=== PATIENT | female | born 1980 | race Caucasian/White ===

== ENCOUNTER → 2016-06-22 | Outpatient (CLI) | payer BC, OTHER | LOC: RAD 20:13 | DX: M54.5 Low back pain (principal) | CPT/HCPCS: 72110 ==

== ENCOUNTER → 2020-05-05 | Outpatient (CLI) | payer OTHER | LOC: KOH-I 15:46 | DX: M25.552 Pain in left hip (principal) | CPT/HCPCS: 73502 ==

== ENCOUNTER → 2020-08-04 | Outpatient (CLI) | payer OTHER ==
[2020-08-05 08:15] LABS: FSH, SERUM 54.4 mIU/mL (.)
[2020-08-08 04:09] LABS: TESTOSTERONE, SERUM <3 ng/dL (8-60)
== END ==
LOC: LAB 08:28
PROVIDERS: Obstetrics & Gynecology
DX: N95.1 Menopausal and female climacteric states (principal); Z79.890 Hormone replacement therapy
CPT/HCPCS: 82670; 83001; 84402; 84403